=== PATIENT | male | born 1985 | race Caucasian/White ===

== ENCOUNTER 2019-10-19 11:03 | Emergency (ER) | payer BC ==
[2019-10-19 11:21] VITALS: BP 126/76; PULSE 75; RESP 18; TEMP 98.3
[2019-10-19] MEDS ORDERED: LIDOCAINE 1% INJ 10MG/ML (20 ML MDV) SQ STA (11:24)
[2019-10-19] MEDS ORDERED: DIPH,PERTUS(ACELL)TETVAC-LF 0.5 ML VIAL IM ONE (11:24)
[2019-10-19] MEDS ORDERED: WATER FOR IRRIG, STERILE 1,000 ML BTL IRRIGATION ONE (11:24)
--- NOTE | 2019-10-19 12:06 | ED ---
General Adult HPI - General Chief complaint: Wound/Laceration Stated complaint: Chin laceration Time Seen by Provider: 10/19/19 11:21 Source: patient, RN notes reviewed, old records reviewed Mode of arrival: ambulatory Limitations: no limitations - History of Present Illness Initial comments: 34-year-old male patient presented to the chief complaint of laceration on chin. Patient reports that he was rollerblading at a slow rate of speed when his rollerblades slipped out from underneath him. Patient was the car himself on his hands but did fall on his chin sustaining a laceration. Does not know date of last tetanus. Reports May with denies any other complaints. Denies any pain in jaw. Denies any pain hands or wrists. Denies any other injury. Denies any pain in neck. Denies any use of blood thinners. Denies any loss of consciousness. Systemic: Pt denies fatigue, fever/chills, rash. Pt denies weakness, night sweats, weight loss. Neuro: Pt denies headache, visual disturbances, syncope or pre-syncope. HEENT: Pt denies ocular discharge or irritation, otalgia, rhinorrhea, pharyngitis or notable lymphadenopathy. Cardiopulmonary: Pt denies chest pain, SOB, heart palpitations, dyspnea on exertion. Abdominal/GI: Pt denies abdominal pain, n/v/d. : Pt denies dysuria, burning w/ urination, frequency/urgency. Denies new onset urinary or bowel incontinence. MSK: Pt denies myalgia, loss of strength or function in extremities. Neuro: Pt denies new onset weakness, paresthesias. - Related Data Allergies Allergy/AdvReac Type Severity Reaction Status Date / Time No Known Allergies Allergy Verified 10/19/19 11:19 Review of Systems ROS Statement: Those systems with pertinent positive or pertinent negative responses have been documented in the HPI. ROS Other: All systems not noted in ROS Statement are negative. Past Medical History Past Medical History: No Reported History History of Any Multi-Drug Resistant Organisms: None Reported Past Surgical History: Appendectomy Past Psychological History: No Psychological Hx Reported Smoking Status: Never smoker Past Alcohol Use History: Occasional Past Drug Use History: None Reported General Exam - General Exam Comments Initial Comments: Constitutional: NAD, AOX3, Pt has pleasant affect. HEENT: NC/AT, trachea midline, neck supple, no lymphadenopathy. Posterior pharynx non erythematous, without exudates. External ears appear normal, without discharge. Mucous membranes moist. Eyes PERRLA, EOM intact. There is no scleral icterus. No pallor noted. Cardiopulmonary: RRR, no murmurs, rubs or gallops, no JVD noted. Lungs CTAB in anterior and posterior mejía. No peripheral edema. Abdominal exam: Abdomen soft and non-distended. Abdomen non-tender to palpation in all 4 quadrants. Bowel sounds active in LLQ. No hepatosplenomegaly. No ecchymosis Neuro: CN II-XII intact. No nuchal rigidity. No raccon eyes, no pratt sign, no hemotympanum. No cervical spinal tenderness. MSK: 3 cm laceration anterior chin region. Blood range of motion of jaw. No tenderness of jaw or mandible. Able to bite down on popsicle stick without difficulty. There is previously irrigated approximated with 4 simple interrupted sutures. No posterior calf tenderness bilaterally, homans sign negative bilaterally. Posterior tibialis and radial pulse +2 bilaterally. Sensation intact in upper and lower extremities. Full active ROM in upper and lower extremities, 5/5 stregnth. Limitations: no limitations Course Vital Signs 10/19/19 11:19 Temperature 98.3 F Pulse Rate 75 Respiratory 18 Rate Blood Pressure 126/76 O2 Sat by Pulse 99 Oximetry Procedures - Laceration Laceration #1 Consent Obtained: verbal consent Indication: laceration Site: face (chin) Size (cm): 3 Description: linear Depth: simple, single layer Anesthetic Used: lidocaine 1% Anesthesia Technique: local infiltration Amount (mls): 3 Pre-repair: wound explored, irrigated extensively, deep structures intact Type of Sutures: nylon Size of Sutures: 5-0 Number of Sutures: 4 Technique: simple, interrupted Patient Tolerated Procedure: well, no complications Medical Decision Making - Medical Decision Making 34-year-old male patient presents to the chief complaint of fall while rollerblading. Laceration chin. No tenderness of jaw. Full range of motion. No cervical tenderness. Neurologic exam within normal limits. Hands and wrist nontender. No Snuffbox tenderness. Wound vigorously irrigated approximated with 4 simple interrupted sutures. Tetanus updated. Patient discharged with return precautions. Case discussed with Dr. Beaver. Disposition Clinical Impression: Laceration Disposition: HOME SELF-CARE Condition: Stable Instructions (If sedation given, give patient instructions): Laceration (ED) Additional Instructions: Patient to adhere to previously discussed treatment plan and will take medication(s) as directed. Patient to follow up with PCP in 1-2 days. Patient to return to ED if symptoms do not improve. Please return for suture removal: Hand: 7-10 days Face: 5 days Chest/abdomen: 12-14 days Extremities: 7-10 days Scalp: 7 days Eyebrow: 5-7 days Foot/sole: 12-14 days Please monitor for signs and symptoms of infection including: redness, warmth, drainage, discharge. Please return to ED if these signs or symptoms occur, new signs or symptoms develop or if condition worsens in anyway. Is patient prescribed a controlled substance at d/c from ED?: No Referrals: None,Stated [Primary Care Provider] - 1-[facility] days [facility]
== END 2019-10-19 12:21 | disposition home or self-care (01) ==
LOC: EC 11:03
DX: S01.81XA Laceration without foreign body of other part of head, initial encounter (principal); Z23 Encounter for immunization; V00.111A Fall from in-line roller-skates, initial encounter; Y92.830 Public park as the place of occurrence of the external cause; Y93.51 Activity, roller skating (inline) and skateboarding
CPT/HCPCS: 90715; 99283; 12013; 90471; J2001